=== PATIENT | male | born 2000 | race Caucasian/White ===

== ENCOUNTER 2020-03-02 10:44 | Emergency (ER) | payer BC ==
--- NOTE | 2020-03-02 10:58 | TELE ---
HPI Do you have fever,cough or shortness of breath?: No - General Reason For Visit: COVID 19 TEST History Source: Patient Review of Systems - Review of Systems Constitutional: No: Fever Respiratory: No: Cough *Physical Exam - Physical Exam Respiratory/Chest: negative: Respiratory Distress Discharge Diagnosis at time of Disposition: Encounter for laboratory testing for COVID-19 virus - Referrals - Patient Instructions - Discharge Disposition: HOME Condition at time of Disposition: Stable
== END 2020-03-02 10:58 | disposition home or self-care (01) ==
LOC: JVIRT 10:44
DX: Z11.59 Encounter for screening for other viral diseases (principal)
CPT/HCPCS: Q3014-GT; U0003

== ENCOUNTER 2020-04-13 15:25 | Emergency (ER) | payer BC ==
--- NOTE | 2020-04-13 15:34 | TELE ---
HPI Do you have fever,cough or shortness of breath?: No - General Reason For Visit: COVID History Source: Patient Review of Systems - Review of Systems Constitutional: Yes: Other (Fatigue ). No: Fever Respiratory: No: Cough *Physical Exam - Physical Exam Respiratory/Chest: positive: Normal Breath Sounds. negative: Respiratory Distress Neurologic: positive: Normal Mood/Affect Discharge Diagnosis at time of Disposition: Encounter for laboratory testing for COVID-19 virus - Referrals - Patient Instructions - Discharge Disposition: HOME Condition at time of Disposition: Stable
== END 2020-04-13 15:34 | disposition home or self-care (01) ==
LOC: JVIRT 15:25
DX: Z11.59 Encounter for screening for other viral diseases (principal)
CPT/HCPCS: C9803; G2012-GT; U0003